=== PATIENT | female | born 1980 | race Caucasian/White ===

== ENCOUNTER → 2020-03-31 | Outpatient (CLI) | payer OTHER ==
[~2020-03-31] MED LIST: FERR325T14 PO; PROG100C10 PO; TRAZ-118 PO
[2020-03-31 14:54] LABS: BASO # 0.1 x10^3/uL (0.0-0.2); BASO % 1 % (0-3); EOS # 0.2 x10^3/uL (0.0-0.7); EOS % 2 % (0-3); HEMOGLOBIN 13.1 g/dL (12.0-15.5); LYMPH % 33 % (24-48); MEAN CORPUSCULAR HEMOGLOBIN 26 pg (25-35); MEAN CORPUSCULAR HGB CONC 34 g/dL (31-37); MEAN CORPUSCULAR VOLUME 78 fL (79-100); MONO # 0.5 x10^3/uL (0.0-1.1); MONO % 6 % (0-9); NEUT # 5.4 x10^3/uL (1.8-7.7); NEUT % 59 % (31-73); PLATELET COUNT 293 x10^3/uL (140-400); RED BLOOD COUNT 4.98 x10^6/uL (3.50-5.40); WHITE BLOOD COUNT 9.1 x10^3/uL (4.0-11.0)
[2020-03-31 15:17] LABS: ALBUMIN 4.2 g/dL (3.4-5.0); ALBUMIN/GLOBULIN RATIO 1.2 (1.0-1.7); CALCIUM 8.8 mg/dL (8.5-10.1); CREATININE 0.9 mg/dL (0.6-1.0); GFR 69.3; POTASSIUM 4.1 mmol/L (3.5-5.1); TOTAL BILIRUBIN 0.4 mg/dL (0.2-1.0); TOTAL PROTEIN 7.7 g/dL (6.4-8.2)
[2020-03-31 16:42] LABS: BILIRUBIN,URINE NEGATIVE (NEG); CLARITY,URINE CLEAR; COLOR,URINE YELLOW; NITRITE,URINE NEGATIVE (NEG); PROTEIN,URINE NEGATIVE (NEG-TRACE); UROBILINOGEN,URINE 0.2 mg/dL (0.2 mg/dL)
[2020-03-31 16:45] LABS: BACTERIA,URINE 0 /HPF (0-FEW); SQUAMOUS EPITHELIAL CELL,UR FEW /LPF; WBC,URINE 0 /HPF (0-4)
== END | disposition home or self-care (01) ==
LOC: SURGPAT 14:15
PROVIDERS: ATTEND Obstetrics & Gynecology
DX: Z01.818 Encounter for other preprocedural examination (principal); N93.8 Other specified abnormal uterine and vaginal bleeding
CPT/HCPCS: 36415; 80053; 81001; 85025; U0003-CS

== ENCOUNTER 2020-04-06 09:20 | Observation (INO) | payer OTHER ==
[2020-04-06] VITALS (7 sets, daily range): BP systolic 97–111; BP diastolic 38–66
[~2020-04-06] VITALS: Ht 162.6 cm; Wt 77.3 kg
[2020-04-06] MEDS: IV RINGERS,LACTATED 1000ML 1,000 ML IV SCH ×2 (07:00→13:34)
[~2020-04-06 09:20] MED LIST changes: +HYDROmorphone 2 MG/ML VIAL IV PRN; +LIDOCAINE 1% PF 2 ML VIAL. ID PRN; +MORPHINE SULFATE 2 MG/ML VIAL. IV PRN; +ONDANSETRON PF 4 MG/2 ML VIAL. IV PRN; +PROCHLORPERAZINE 10 MG/2 ML VIAL. IV PRN; +fentaNYL PF VIAL 100 MCG/2 ML VIAL IV PRN
[2020-04-06] MEDS ORDERED: ONDANSETRON PF 4 MG/2 ML VIAL. ONE (10:05)
[2020-04-06] MEDS ORDERED: DEXAMETHASONE SOD PHOS 4 MG/ML VIAL ONE (10:05)
[2020-04-06] MEDS ORDERED: MIDAZOLAM HCL/PF 2 MG/2 ML VIAL. ONE (10:05)
[2020-04-06] MEDS ORDERED: fentaNYL PF VIAL 100 MCG/2 ML VIAL ONE ×2 (10:05→13:03)
[2020-04-06] MEDS ORDERED: ROCURONIUM 50 MG/5 ML VIAL. ONE (10:05)
[2020-04-06] MEDS ORDERED: PROPOFOL 10 MG/ML (20ML) VIAL. IV ONE (10:05)
[2020-04-06] MEDS ORDERED: LIDOCAINE 2% PF 5 ML VIAL. ONE (10:05)
[2020-04-06] MEDS ORDERED: ESTROGENS, CONJ VAGINAL CREAM 30GM TUBE. ONE (10:16)
[2020-04-06] MEDS ORDERED: BUPIVACAINE-EPI 0.25%-1:200000 MPF 30 ML VIAL. ONE (10:16)
[2020-04-06] MEDS ORDERED: INDIGOTINDISULFONATE SODIUM 40 MG/5 ML AMPUL. ONE (10:16)
[2020-04-06] MEDS ORDERED: KETOROLAC 30 MG/ML VIAL. ONE (12:15)
[2020-04-06] MEDS ORDERED: GLYCOPYRROLATE 1 MG/5 ML VIAL. ONE (12:15)
[2020-04-06] MEDS ORDERED: NEOSTIGMINE METHYLSULFATE 5 MG/5 ML SYRINGE. ONE (12:16)
[2020-04-06] MEDS ORDERED: diphenhydrAMINE 50 MG/ML VIAL IV PRN (13:15)
[2020-04-06] MEDS ORDERED: MAGNESIUM HYDROXIDE 2,400 MG/30 ML ORAL.SUSP. PO PRN (13:15)
[2020-04-06] MEDS ORDERED: ONDANSETRON PF 4 MG/2 ML VIAL. IV PRN (13:15)
[2020-04-06] MEDS ORDERED: NALOXONE 0.4 MG/ML VIAL. IV PRN (13:15)
[2020-04-06] MEDS ORDERED: diphenhydrAMINE HCL 25 MG CAPSULE PO PRN (13:15)
[2020-04-06] MEDS ORDERED: ZOLPIDEM 5 MG TABLET. PO PRN (13:15)
[2020-04-06] MEDS ORDERED: CALCIUM CARBONATE 500 MG TAB.CHEW PO PRN (13:15)
[2020-04-06] MEDS ORDERED: HYDROcodone/APAP 5/325MG 1 TAB TABLET PO PRN (13:15)
[2020-04-06] MEDS ORDERED: 0.9 % SODIUM CHLORIDE 10 ML DISP.SYRIN. IV PRN (13:15)
[2020-04-06] MEDS ORDERED: MAG HYDROX/ALUMINUM HYD/SIMETH 30 ML ORAL.SUSP PO PRN (13:15)
[2020-04-06] MEDS ORDERED: MORPHINE SULFATE 2 MG/ML VIAL. IV PRN (13:15)
[2020-04-06] MEDS ORDERED: LACTULOSE 20 GM/30 ML SOLUTION. PO PRN (13:15)
[2020-04-06] MEDS ORDERED: SIMETHICONE 80 MG TAB.CHEW PO PRN (13:15)
[2020-04-06] MEDS ORDERED: SEVOFLURANE 61 TO 120 MINUTES. IH ONE (13:18)
[2020-04-06] MEDS: fentaNYL PF VIAL 100 MCG/2 ML VIAL IV PRN ×3 (13:32→14:14)
--- NOTE | 2020-04-06 13:33 | PDOC ---
BRIEF OPERATIVE NOTE Date: Apr 06, 2020 Pre-Op Diagnosis pelvic pain, dysmenorrhea Post-Op Diagnosis same plus adhesive disease Procedure Performed LAVH/bilateral salpingectomy/lysis of adhesions Surgeon Dr. Charley Castillo Lead Inspector CAMILO Brice Anesthesiologist Dr. Oliver Anesthesia Type: General Blood Loss 50cc IV Fluid 1L Urine Output 325cc clear Specimens Obtained cervix, uterus, bilateral tubes Findings uterus mild adhesions to anterior abdominal wall; thick bladder adhesion Complications none Operative Note [id number] CHARLEY CASTILLO MD Apr 06, 2020 13:33
--- NOTE | 2020-04-06 14:25 | OP ---
DATE OF SURGERY: 04/06/2020 PREOPERATIVE DIAGNOSES: Pelvic pain, dysmenorrhea, dysfunctional uterine bleeding. POSTOPERATIVE DIAGNOSES: Pelvic pain, dysmenorrhea, dysfunctional uterine bleeding plus adhesive disease. PROCEDURE: Laparoscopic-assisted vaginal hysterectomy, bilateral salpingectomy, lysis of adhesions. SURGEON: Karthik Darnell MD QUARTER LINING SMOOTHER: CAMILO Brice ANESTHESIOLOGIST: Dr. Jean-Pierre Oliver. ANESTHESIA: General. ESTIMATED BLOOD LOSS: 50 mL. URINE OUTPUT: 325 mL clear via Mcadams catheter. IV FLUIDS: 1 liter of crystalloid. FINDINGS: Uterus was mildly adhesed to the anterior abdominal wall. She had thick bladder adhesions. Her left tube was adhesed to the anterior abdominal wall. She had a small cyst on the left ovary that was drained. COMPLICATIONS: None. SPECIMENS: Cervix, uterus, bilateral tubes. DESCRIPTION OF PROCEDURE: This patient was taken to the operating room where general anesthesia was placed. The patient was placed in dorsal lithotomy position in [facility]. The patient's abdomen and vagina were prepped and draped in the normal sterile fashion and a Mcadams catheter had been inserted under sterile technique. Upon my arrival, a timeout was performed. Once everyone agreed, a weighted speculum was placed in the patient's vagina. A single-tooth tenaculum was used to grasp the anterior lip of the cervix. A 10 mL of 0.25% Marcaine with epinephrine was used to circumferentially inject around the cervix for both hemodissection and hemostatic purposes later. The Valtchev uterine manipulator was placed through the endocervical os, locked on the single tooth tenaculum and the weighted speculum was then removed. Top gloves were discarded and changed. Attention was then turned to the abdomen where a small infraumbilical skin incision was made with the scalpel. A curved Nayeli was used to dissect through the subcuticular layer to the fascia. The 5 mm Visiport was used to directly enter the abdominal cavity. Opening patient pressure was 4 mmHg. Carbon dioxide gas was used to then appropriately insufflate the abdominal cavity to maintain a pressure of 15 mmHg. The patient was placed in Trendelenburg position. There were no adhesions to the anterior abdominal wall on either side of the umbilicus where we were putting right and left lower quadrant ports, so the abdominal wall was transilluminated, finding an area clear of any vasculature, making a small incision and placing the 5 mm disposable atraumatic trocar in under direct visualization with right and left lower quadrant ports using 4-5 mL of air to insufflate the cuff on the trocars, then I did move the camera laterally to look at the umbilical port, it was also in and clear, so it was insufflated with the 4-5 mL of air as well. Once this was done, please see all the above findings. I started on the left side, elevated the left tube and ovary, went above the ovary, below the tube did a salpingectomy, had to take it off the anterior abdominal wall as well as going above the ovary. I also then took the monopolar tip to the cautery and drained a small 1 cm clear left ovarian cyst, doing a salpingectomy, then crossing the left uteroovarian pedicle with the cautery and the left round ligament, freeing up the left side and then taking down the filmy adhesions retroverting the uterus and bluntly kind of clearing out any of the adhesions to the uterus to the anterior abdominal wall. All that was left was a thick bladder adhesion, but I was able to get it free and the left side was free. Now, I looked on the right. We could see the ureter coursing low, again staying above the ovary, leaving the ovary per patient request, doing a salpingectomy on the right side as well, crossing the right uterine ovarian pedicle and then the right round ligament as well, going down and trying to get the uterine vessels on both sides, making sure we were still well away from that bladder flap, coming out it from the side, peeling it up from the sides, so we could get the uterines and go down the sides on both sides, even though there was still a thick bladder adhesion in the middle. I was able to peel it up from both sides and hug the cervix and go down posteriorly and get the cardinal and broad ligaments down to the uterosacrals on both sides. Once this was done, it was completely free from the back side. Again, the right upper quadrant looked okay. The appendix was mildly adhesed, but looked okay. There were no other abnormalities, no active bleeding. All instruments were removed and attention was turned below. At this point, a weighted speculum was placed in the vagina. The single tooth and the Valtchev were removed. Thyroid Joao clamps were placed on the anterior and posterior lips of the cervix respectively. A circumferential incision was made with the scalpel. The posterior cul-de-sac was sharply entered and a #0 Vicryl stitch was used to secure the posterior peritoneum to the vaginal cuff, tagging it with a curved Nayeli clamp, cutting and passing the needle off. The short weighted speculum was removed and replaced with the long weighted Tiki speculum in the posterior cul-de-sac. At this point, attention was taken then to take off the bladder from the cervix anteriorly sharply and bluntly using an open Ray-Tanner to gently push it up. Once it was well up above the level of the uterosacrals, I did take the uterosacrals on both sides, starting with the left uterosacral ligament, double clamping it with curved Kim's, cutting with curved Mcelroy scissors and suture ligating x 2 with 0 Vicryl, taking the second one through the vaginal cuff securing uterosacral ligament to the vaginal cuff, tagging it with a straight Nayeli clamp and cutting and passing the needle off. This was done exactly the same on the right side, double clamping the uterosacrals with curved Kim's, cutting with curved Mcelroy scissors, suture ligating x 2 with 0 Vicryl, taking the second one through the vaginal cuff, tagging it with a straight Nayeli clamp and cutting and passing the needle off. At this point, I could get my finger all the way around and behind the uterus that where that thick adhesion was, that first and foremost, I went ahead and the remaining pedicle could be delineated and I could get the right angle clamp around it, separate from the bladder adhesion. I put it around it and used the vaginal LigaSure to cauterize and cut that remaining pedicle on both sides, literally all that was holding the uterus in at this point was not thick bladder adhesion. I was able to invert the uterus and come out on the side of the uterus using the Metzenbaums and was able to start it from the patient's left side and then used my finger to peel it up and was able to remove that thick adhesion. Cervix, uterus and one tube came out the other tube actually had detached, it was very thin from the prior tubal ligation and was still in the abdominal cavity, so that was removed with the laparoscope at the end through one of the 5 mm ports easily, but cervix, uterus and both tubes were removed and passed off for permanent pathology. I do believe it was the right tube that came off separately and will be passed as a separate specimen. Once all of that was done, the sponge stick was used to examine all the pedicles. There was some slight bleeding from the left side. I did cauterize an open vessel and then I put a burlisher on and put a 2-0 Vicryl stitch here with excellent hemostasis. The remainder of it looked good. I removed the long weighted speculum from the posterior cul-de-sac, replaced it with the short weighted vaginal speculum and everything looked good using a sponge stick to examine all the pedicles. The Allis was used to be placed on the anterior bladder peritoneum, which was right on the edge of that adhesion, a 2-0 Vicryl was taken through this, the left uterosacral ligament, posterior peritoneum and right uterosacral ligament, thus closing the peritoneum in a pursestring like fashion. Once this was done, the right and left uterosacral tags were clipped as well. The cuff was closed in an anterior to posterior running locked fashion with a full length 2-0 Vicryl and tied to the posterior cuff tag with excellent hemostasis. Once this was done, all gloves were discarded and changed and attention was turned back above for a second look. The patient was placed back in Trendelenburg. Carbon dioxide gas was used to reinsufflate the abdominal cavity. There was no bleeding whatsoever at all. Copious irrigation revealed hemostasis. Tisseel was placed over the cuff and the pedicle sites with excellent results. The right and left lower quadrant ports, the trocar cuffs were deflated and removed under direct visualization. They were hemostatic. The umbilical trocar cuff was deflated. The gas was released from it first, then it was removed. All three port sites were closed with 4-0 nylon at the skin and injected with 10 mL of local. The patient was then awakened from general anesthesia, extubated and brought to recovery room in stable condition. KARTHIK DARNELL MD DR: ILEANA/roland JOB#: [id number] / [id number]
[2020-04-06] MEDS ORDERED: FERROUS SULFATE 325 MG TABLET. PO SCH (17:00)
[2020-04-06] MEDS: oxyCODONE/APAP 5/325 1 TAB TABLET PO PRN ×2 (19:04→22:59)
[2020-04-06] MEDS ORDERED: traZODone 50 MG TABLET. PO SCH (21:00)
[2020-04-07 03:05] VITALS: BP 87/44
[2020-04-07] MEDS: oxyCODONE/APAP 5/325 1 TAB TABLET PO PRN ×2 (03:06→11:10)
[2020-04-07 05:25] LABS: CALCIUM 8.2 mg/dL (8.5-10.1); CREATININE 1.1 mg/dL (0.6-1.0); POTASSIUM 4.4 mmol/L (3.5-5.1)
[2020-04-07 07:46] VITALS: BP 101/62
[2020-04-07] MEDS ORDERED: DOCUSATE SODIUM 100 MG CAPSULE. PO PRN (10:00)
[2020-04-07 11:28] VITALS: BP 92/50
--- NOTE | 2020-04-07 12:02 | PDOC ---
SURGICAL PROGRESS NOTE Subjective Doing well. Just sore after shower is only complaint. No vaginal bleeding. Tolerating regular diet Vital Signs Vital Signs Date Time Temp Pulse Resp B/P (MAP) Pulse Ox O2 Delivery O2 Flow Rate FiO2 04/07/20 11:28 97.3 68 18 92/50 (64) 97.3 04/07/20 11:10 Room Air 04/07/20 07:46 99 04/06/20 13:47 8.0 I&O Intake and Output 04/07/20 07:00 Intake Total 2450 ml Output Total 550 ml Balance 1900 ml Intake Oral 1100 ml IV Total 1350 ml Output Urine Total 500 ml Estimated Blood Loss 50 ml PATIENT HAS A RIVAS: No General: Alert, Oriented X3, Cooperative, No acute distress HEENT: Atraumatic Heart: Regular rate Abdomen: Soft, No tenderness, Other (all port sites c/d/i) Extremities: No clubbing, No cyanosis, No edema Skin: No rashes, No breakdown, No significant lesion Neuro: Normal speech Psych/Mental Status: Mental status NL, Mood NL Labs Laboratory Tests Test 04/06/20 09:45 04/07/20 04:33 Bedside Urine HCG, Qualitative Hcg negative (Negative) Hematocrit 31.1 % (36.0-47.0) Sodium Level 138 mmol/L (136-145) Potassium Level 4.4 mmol/L (3.5-5.1) Chloride Level 104 mmol/L (98-107) Carbon Dioxide Level 20 mmol/L (21-32) Anion Gap 14 (6-14) Blood Urea Nitrogen 10 mg/dL (7-20) Creatinine 1.1 mg/dL (0.6-1.0) Estimated GFR (Cockcroft-Gault) 55.0 Glucose Level 128 mg/dL (70-99) Calcium Level 8.2 mg/dL (8.5-10.1) Laboratory Tests Test 04/07/20 04:33 Hematocrit 31.1 % (36.0-47.0) Sodium Level 138 mmol/L (136-145) Potassium Level 4.4 mmol/L (3.5-5.1) Chloride Level 104 mmol/L (98-107) Carbon Dioxide Level 20 mmol/L (21-32) Anion Gap 14 (6-14) Blood Urea Nitrogen 10 mg/dL (7-20) Creatinine 1.1 mg/dL (0.6-1.0) Estimated GFR (Cockcroft-Gault) 55.0 Glucose Level 128 mg/dL (70-99) Calcium Level 8.2 mg/dL (8.5-10.1) I have reviewed the following labs, vitals and nursing Cardiovascular: No pertinent hx Pulmonary: No pertinent hx GI: No pertinent hx Heme/Onc: No pertinent hx Psych: No pertinent hx Endocrine: No pertinent hx Assessment/Plan POD#1 s/p LAVH/bilateral salpingectomy/lysis of adhesions Routine PO care d/c to home NPV x 6 weeks light/limited activity x 2 weeks keep scheduled one week appt in office already has [place] and Motrin 800mg at home call or return sooner for any other questions or concerns not limited to but including pain unrelieved with pain meds, increased or unexplained vaginal bleeding, T>100.4 Justicifation of Admission Dx: Justifications for Admission: Justification of Admission Dx: Yes Comments: post surgical patient KARTHIK CASTILLO MD Apr 07, 2020 12:02
--- NOTE | 2020-04-07 12:04 | PDOC3 ---
Discharge Summary Visit Information Date of Admission: Apr 06, 2020 Date of Discharge: Apr 07, 2020 Final Diagnosis pelvic pain, DUB, lysis of adhesions Brief Hospital Course Allergies Allergies Coded Allergies Type Severity Reaction Last Updated Verified Antihistamines - Alkylamine Allergy Mild 03/31/20 Yes Vital Signs Vital Signs Date Time Temp Pulse Resp B/P (MAP) Pulse Ox O2 Delivery O2 Flow Rate FiO2 04/07/20 11:28 97.3 68 18 92/50 (64) 97.3 04/07/20 11:10 Room Air 04/07/20 07:46 99 04/06/20 13:47 8.0 Lab Results Laboratory Tests Test 04/06/20 09:45 04/07/20 04:33 Bedside Urine HCG, Qualitative Hcg negative (Negative) Hematocrit 31.1 % (36.0-47.0) Sodium Level 138 mmol/L (136-145) Potassium Level 4.4 mmol/L (3.5-5.1) Chloride Level 104 mmol/L (98-107) Carbon Dioxide Level 20 mmol/L (21-32) Anion Gap 14 (6-14) Blood Urea Nitrogen 10 mg/dL (7-20) Creatinine 1.1 mg/dL (0.6-1.0) Estimated GFR (Cockcroft-Gault) 55.0 Glucose Level 128 mg/dL (70-99) Calcium Level 8.2 mg/dL (8.5-10.1) Laboratory Tests Test 04/07/20 04:33 Hematocrit 31.1 % (36.0-47.0) Sodium Level 138 mmol/L (136-145) Potassium Level 4.4 mmol/L (3.5-5.1) Chloride Level 104 mmol/L (98-107) Carbon Dioxide Level 20 mmol/L (21-32) Anion Gap 14 (6-14) Blood Urea Nitrogen 10 mg/dL (7-20) Creatinine 1.1 mg/dL (0.6-1.0) Estimated GFR (Cockcroft-Gault) 55.0 Glucose Level 128 mg/dL (70-99) Calcium Level 8.2 mg/dL (8.5-10.1) Brief Hospital Course Ms. Gonzales is a 40 old female who presented with pelvic pain and DUB. She underwent LAVH/Bilateral salpingectomy and lysis of adhesions yesterday without complication. She has had an unremarkable postoperative course and doing well desiring to go home. AFVSS, ambulating well, tolerating regular diet and up and showered. No n/v and no vaginal bleeding. Assessment Assessment POD#1 s/p LAVH/bilateral salpingectomy/lysis of adhesions Routine PO care d/c to home NPV x 6 weeks light/limited activity x 2 weeks keep scheduled one week appt in office already has [place] and Motrin 800mg at home call or return sooner for any other questions or concerns not limited to but including pain unrelieved with pain meds, increased or unexplained vaginal bleeding, T>100.4 Discharge Information Condition at Discharge: Stable Follow Up: Weeks Disposition/Orders: D/C to Home Scheduled Ferrous Sulfate (Ferrous Sulfate) 325 Mg Tablet, 325 MG PO BID for ANEMIA, (Reported) Entered as Reported by: ROSA HAYES on 03/31/201442 Last Action: Continued on 04/06/201052 by KARTHIK CASTILLO Progesterone,Micronized (Progesterone) 100 Mg Capsule, 60 MG PO DAILY for HORMONE, (Reported) Entered as Reported by: ROSA HAYES on 03/31/201442 Last Action: HELD on 04/06/201052 by KARTHIK CASTILLO Trazodone Hcl (Trazodone Hcl) 50 Mg Tablet, 50 MG PO HS for INSOMNIA, (Reported) Entered as Reported by: ROSA HAYES on 03/31/201441 Last Action: Continued on 04/06/201052 by KARTHIK CASTILLO Patient Instructions Patient Instructions POD#1 s/p LAVH/bilateral salpingectomy/lysis of adhesions Routine PO care d/c to home NPV x 6 weeks light/limited activity x 2 weeks keep scheduled one week appt in office already has [place] and Motrin 800mg at home call or return sooner for any other questions or concerns not limited to but including pain unrelieved with pain meds, increased or unexplained vaginal bleeding, T>100.4 Justicifation of Admission Dx: Justifications for Admission: Justification of Admission Dx: Yes KARTHIK CASTILLO MD Apr 07, 2020 12:04
--- NOTE | 2020-04-07 13:12 | NUR ---
Reviewed discharge instructions with pt. Pt verbalized understanding of discharge instructions : no driving pushing pulling twisting or lifting above 10lbs for 2 weeks. Nothing per vagina for 6weeks.
--- NOTE | 2020-04-08 21:05 | PATHOLOGY ---
[facility] Accession Number: [id number] . 01 Material submitted: . uterus - UTERUS, CERVIX, BILATERAL TUBES. Modifiers: bilateral . 01 Clinical history: . Menorrhagia, DUB . 02 Diagnosis: Uterus with attached left fallopian tube and separate detached right fallopian tube, laparoscopic assisted vaginal hysterectomy with bilateral salpingectomy: - Adenomyosis, uterine corpus, focal. - Chronic cervicitis with focal squamous metaplasia. - Endometrium showing inactive/atrophic endometrial glands and focal stromal decidualization, consistent with progesterone effect. - Few cystic [place]ard rests of right fallopian tube. - Congestion of bilateral fallopian tubes. (JPM:demetrice; 04/08/2020) [facility] 04/08/2020 1615 Local . 02 Comment: There is no atypia or evidence of malignancy. (JPM:demetrice; 04/08/2020) . 02 Electronically signed: . Kostas Terrazas MD, Pathologist NPI- [id number] . 01 Gross description: . The specimen is received in formalin, labeled "Christian, Melany, uterus cervix bilateral tubes" and consists of a 80 g uterus with attached cervix and left fimbriated fallopian tube measuring 9.3 x 4.8 x 3.8 cm. Received separately is the right fimbriated fallopian tube measuring 5.0 cm in length and up to 0.5 cm in diameter. The left fallopian tube measures 6.0 cm in length and up to 0.4 cm in diameter. The uterine serosa is sanchez-brown with focal hemorrhagic adhesions. The gaping 1.9 cm cervical os is surrounded by a sanchez glistening ectocervical mucosa. It is bivalved to reveal a corrugated endocervical canal measuring 3.3 cm in length. The endometrial cavity is triangular measuring 4.8 cm in length and 3.0 cm in width lined by red endometrium measuring 0.1 cm. No polyps are grossly identified. The myometrium is pink-sanchez measuring up to 2.3 cm with no nodules. Both fallopian tube segments are purple pink with sectioning revealing a central lumen. Computer Animator sections are submitted as follows: . A1: Anterior cervix A2: Posterior cervix A3: Anterior endomyometrium A4: Posterior endomyometrium A5: Right fallopian tube A6: Left fallopian tube (SDY; 04/07/2020) [facility]U 04/08/2020 1611 Local . 02 Pathologist provided ICD-10: N80.0, N72, N87.9 . 02 CPT . 080945 Specimen Comment: A courtesy copy of this report has been sent to [phone] Specimen Comment: Report sent to Performed at: 01 [facility] [address] [facility] [address], [place] [id number] MD Wilmer Salinas MD Phone: [phone] Performed at: 02 [facility] [address] [place], [place] [id number] MD Kostas Terrazas MD Phone: [phone]
== END 2020-04-07 13:11 | disposition home or self-care (01) ==
LOC: SURG 09:20 → 3 NORTH 14:19
PROVIDERS: ADMIT Obstetrics & Gynecology; ATTEND Obstetrics & Gynecology
DX: N94.6 Dysmenorrhea, unspecified (principal); N93.8 Other specified abnormal uterine and vaginal bleeding; N83.202 Unspecified ovarian cyst, left side; K66.0 Peritoneal adhesions (postprocedural) (postinfection); Z79.899 Other long term (current) drug therapy; Z98.51 Tubal ligation status
CPT/HCPCS: 36415; 58552; 80048; 81025; 85014; 86850; 86900; 86901; 96374; A7015; G0378; G0379; J1100; J1885; J2250; J2270; J2405; J2704; J2710; J3010; J3490; J7030; J7120